=== PATIENT | male | born 1970 | race Caucasian/White ===

== ENCOUNTER 2017-09-14 08:42 | Day surgery (SDC) | payer OTHER ==
[~2017-09-14] VITALS: Ht 170.2 cm; Wt 103.5 kg
[~2017-09-14 08:42] MED LIST: FEXO1TAB29 PO
[2017-09-14 09:24] VITALS: BP 118/79
[2017-09-14] MEDS ORDERED: LACTATED RINGERS 1,000 ML IV SCH (09:28)
[2017-09-14] MEDS ORDERED: NAPR220T77 PO (09:29)
[2017-09-14] MEDS ORDERED: FENTANYL PF 100 MCG/2ML ONE (10:08)
[2017-09-14] MEDS ORDERED: MIDAZOLAM 1 MG/ML, 2ML ONE (10:08)
[2017-09-14] MEDS ORDERED: EPINEPHRINE 1 MG/ML, 1ML ONE (10:41)
[2017-09-14] MEDS ORDERED: CEFAZOLIN 1,000 MG ONE (10:41)
[2017-09-14] MEDS ORDERED: KETOROLAC 30 MG/1 ML ONE (10:41)
[2017-09-14] MEDS ORDERED: ONDANSETRON 2MG/ML, 2ML ONE (10:41)
[2017-09-14] MEDS ORDERED: PROPOFOL 10 MG/ML, 20ML ONE (10:41)
[2017-09-14] MEDS ORDERED: HYDROmorphone 2 MG/ML, 1ML ONE (10:50)
[2017-09-14] MEDS ORDERED: BUPIVACAINE/PF 0.5% INFIL ONE (11:10)
[2017-09-14] MEDS ORDERED: EPINEPHRINE 1 MG/ML, 1ML INFIL ONE (11:14)
[2017-09-14] MEDS ORDERED: HYDROmorphone 1 MG/ML, 1ML IV PRN (11:30)
[2017-09-14] MEDS ORDERED: ACETAMINOPHEN 325 MG TABLET PO PRN (11:30)
[2017-09-14] MEDS ORDERED: FENTANYL PF 100 MCG/2ML IV PRN (11:30)
[2017-09-14] MEDS ORDERED: PROMETHAZINE 25 MG/ML, 1ML IV PRN (11:30)
[2017-09-14] MEDS ORDERED: OXYcodone 5 MG/5 ML ORAL.SOL UDC PO PRN (11:30)
[2017-09-14] MEDS ORDERED: OXYcodone/APAP 5/325MG TABLET PO PRN (13:26)
[2017-09-14] MEDS ORDERED: OXYcodone/APAP 5/325MG TABLET ONE (13:30)
== END 2017-09-14 13:35 ==
LOC: OUT 08:42
PROVIDERS: ATTEND Surgery
DX: C81.10 Nodular sclerosis Hodgkin lymphoma, unspecified site (principal); Z88.8 Allergy status to other drugs, medicaments and biological substances
CPT/HCPCS: 38500; 88305; 88312; 88329; 88341; 88342; J0171; J0690; J1170; J1885; J2250; J2405; J2704; J3010; J3490; J7120; G0461

== ENCOUNTER → 2017-10-08 | Outpatient (CLI) | payer OTHER ==
[~2017-10-08] MED LIST changes: +NAPR220T77 PO
== END | disposition home or self-care (01) ==
LOC: CARD 12:59
PROVIDERS: ATTEND Specialist
DX: C81.12 Nodular sclerosis Hodgkin lymphoma, intrathoracic lymph nodes (principal)
CPT/HCPCS: 94060; 94726; 94729

== ENCOUNTER → 2017-10-18 | Outpatient (CLI) | payer OTHER | END | disposition home or self-care (01) | LOC: PETCFH 07:50 | PROVIDERS: ATTEND Specialist | DX: C81.10 Nodular sclerosis Hodgkin lymphoma, unspecified site (principal); R59.1 Generalized enlarged lymph nodes | CPT/HCPCS: 78815; A9552 ==

== ENCOUNTER → 2017-12-26 | Outpatient (CLI) | payer OTHER | END | disposition home or self-care (01) | LOC: CARD 13:46 | PROVIDERS: ATTEND Specialist | DX: C81.12 Nodular sclerosis Hodgkin lymphoma, intrathoracic lymph nodes (principal) | CPT/HCPCS: 94010; 94726; 94729 ==

== ENCOUNTER → 2018-01-14 | Outpatient (CLI) | payer OTHER | END | disposition home or self-care (01) | LOC: PETCFH 08:48 | PROVIDERS: ATTEND Specialist | DX: C81.12 Nodular sclerosis Hodgkin lymphoma, intrathoracic lymph nodes (principal) | CPT/HCPCS: 78815; A9552 ==

== ENCOUNTER → 2018-03-08 | Outpatient (CLI) | payer OTHER ==
[~2018-03-08] MED LIST changes: +GADOBUTROL 10 MMOL/10 ML PFS ONE
== END | disposition home or self-care (01) ==
LOC: RAD 14:39
PROVIDERS: ATTEND Specialist
DX: G51.0 Bell's palsy (principal); C81.12 Nodular sclerosis Hodgkin lymphoma, intrathoracic lymph nodes
CPT/HCPCS: 70553; A9585

== ENCOUNTER → 2018-03-21 | Outpatient (CLI) | payer OTHER ==
[~2018-03-21] MED LIST changes: -GADOBUTROL 10 MMOL/10 ML PFS ONE
== END ==
LOC: PETCFH 07:28
PROVIDERS: ATTEND Specialist
DX: C81.90 Hodgkin lymphoma, unspecified, unspecified site (principal); R59.9 Enlarged lymph nodes, unspecified
CPT/HCPCS: 78815; A9552

== ENCOUNTER → 2018-07-04 | Outpatient (CLI) | payer OTHER | END | disposition home or self-care (01) | LOC: PETCFH 08:41 | PROVIDERS: ATTEND Specialist | DX: I25.10 Atherosclerotic heart disease of native coronary artery without angina pectoris (principal); R91.1 Solitary pulmonary nodule; C81.12 Nodular sclerosis Hodgkin lymphoma, intrathoracic lymph nodes | CPT/HCPCS: 78815; A9552 ==

== ENCOUNTER → 2018-09-20 | Outpatient (CLI) | payer OTHER ==
[~2018-09-20] MED LIST changes: +OMNIPAQUE 350 MG/ML, 150 ML BOTTLE ONE
== END | disposition home or self-care (01) ==
LOC: RAD 09:24
PROVIDERS: ATTEND Specialist
DX: C81.12 Nodular sclerosis Hodgkin lymphoma, intrathoracic lymph nodes (principal); M47.892 Other spondylosis, cervical region
CPT/HCPCS: 70491; 71260; 74160; Q9967

== ENCOUNTER → 2018-10-04 | Outpatient (CLI) | payer OTHER ==
[~2018-10-04] MED LIST changes: -OMNIPAQUE 350 MG/ML, 150 ML BOTTLE ONE
== END | disposition home or self-care (01) ==
LOC: PETCFH 10:14
PROVIDERS: ATTEND Specialist
DX: R59.0 Localized enlarged lymph nodes (principal); C81.12 Nodular sclerosis Hodgkin lymphoma, intrathoracic lymph nodes
CPT/HCPCS: 78815; A9552